=== PATIENT | female | born 1965 | race Asian ===

== ENCOUNTER 2018-08-26 08:44 | Inpatient (IN) | payer MEDICAID ==
[2018-08-15 11:24] LABS: APPEARANCE,URINE CLEAR; BILIRUBIN, URINE NEGATIVE (NEGATIVE); COLOR,URINE PALE YELLOW; GLUCOSE, URINE (UA) NEGATIVE (NEGATIVE); KETONES,URINE NEGATIVE (NEGATIVE); LEUKOCYTE ESTERASE ,URINE NEGATIVE (NEGATIVE); NITRITE,URINE NEGATIVE (NEGATIVE); PH,URINE 7 (4.5-8.0); PROTEIN,URINE NEGATIVE (NEGATIVE); UROBILINOGEN,URINE NORMAL MG/DL (0.0-1.0)
[2018-08-15 11:29] LABS: EOSINOPHILS % (AUTO) 2.6 % (0.0-3.0); HEMATOCRIT 46.8 % (37.0-47.0); HEMOGLOBIN 15.8 G/DL (12.0-16.0); LYMPHOCYTES % (AUTO) 33.4 % (20.0-45.0); MEAN CORPUSCULAR VOLUME 88 FL (80-99); MONOCYTES % (AUTO) 7.6 % (1.0-10.0); NEUTROPHILS % (AUTO) 55.4 % (45.0-75.0); PLATELET COUNT 255 K/UL (150-450); RED BLOOD COUNT 5.33 M/UL (4.20-5.40); RED CELL DISTRIBUTION WIDTH 10.9 % (11.6-14.8); WHITE BLOOD COUNT 5.5 K/UL (4.8-10.8)
[2018-08-15 11:40] LABS: INR 0.9 (0.9-1.1)
[2018-08-15 12:33] LABS: ANION GAP 7 mmol/L (5-15); BLOOD UREA NITROGEN 9 mg/dL (7-18); CARBON DIOXIDE 32 MMOL/L (21-32); CHLORIDE 104 MMOL/L (98-107); CREATININE 0.5 MG/DL (0.55-1.30); POTASSIUM 4.1 MMOL/L (3.5-5.1); SODIUM 143 MMOL/L (136-145)
--- NOTE | 2018-08-23 16:15 | Pre-op HX & Phy Repo 2 SIG ---
DATE OF ADMISSION: 08/26/2018 SCHEDULED FOR SURGERY: 08/26/2018 HISTORY OF PRESENT ILLNESS: The patient is a 53-year-old female in overall good health with left breast cancer. The patient presented for screening mammography with a finding of a 1 centimeter mass in the left breast at 2 o'clock 7 cm from the nipple. 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 Estrogen and progesterone receptors were positive and HER2 negative. The patient is scheduled to undergo left breast partial mastectomy with preoperative needle localization and left axillary lymph node biopsy. PAST MEDICAL HISTORY: MEDICATIONS: None ALLERGIES: None. OPERATIONS: Right wrist surgery 2008. REVIEW OF SYSTEMS: 2, para 2. PHYSICAL EXAMINATION: GENERAL: The patient is 5 foot and 2 inches, 146 pounds. HEENT: Within normal limits. LUNGS: Clear. HEART: Regular rhythm. BREASTS: Small. There are no palpable masses in either breast. There is no axillary or supraclavicular lymphadenopathy. ABDOMEN: Soft. PELVIC AND RECTAL: Per primary care. EXTREMITIES: Without edema. NEUROLOGIC: Physiologic. 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 PLAN: Full discussion has been had with the patient regarding the nature of her condition, the nature of the surgery, indications, alternatives, options and risks including bleeding, infection, need for additional procedures based on final pathology, need for additional treatment based on final pathology including possible chemotherapy and radiation therapy, scarring, distortion of the breast and/or nipple, injury to adjacent structures or organs, etc. All questions have been answered. The patient understands and agrees to proceed. Shakir Gomez M.D. DR: Breanna JOB#: [id number] CC: EDITH
--- NOTE | 2018-08-24 20:28 | Cardiology Report ---
APPROVED REPORT EKG Measurement Heart [id number] Normal sinus rhythm Right bundle branch block Abnormal ECG
[~2018-08-26] VITALS: Ht 160 cm; Wt 66.2 kg
[2018-08-26] VITALS (13 sets, daily range): BP systolic 132–165; BP diastolic 87–101
[2018-08-26] MEDS ORDERED: VITAMIN C500 M1 ORAL (09:26)
[2018-08-26] MEDS ORDERED: Bacitracin 50000 Units Vial ONE (10:14)
[2018-08-26] MEDS ORDERED: NeoSporin Gu Irrig 1ml Amp IRRIG ONE (10:15)
[2018-08-26] MEDS ORDERED: LR 1000ml 1,000 ML IVLG SCH (10:19)
--- NOTE | 2018-08-26 10:24 | Anethesia Preoperative Eval ---
Anesthesia Pre-op PMH/ROS General Date of Evaluation: Aug 26, 2018 Time of Evaluation: 10:51 Anesthesiologist: Rojelio ASA Score: ASA 3 Mallampati Score Class I : Soft palate, uvula, fauces, pillars visible Class II: Soft palate, uvula, fauces visible Class III: Soft palate, base of uvula visible Class IV: Only hard plate visible Mallampati Classification: Class I Surgeon: Patricia Diagnosis: Left Breast CA Surgical Procedure: Left Breast Partial Mastectomy with Lymph Node Dissection Anesthesia History: none Family History: no anesthesia problems Allergies: Coded Allergies: No Known Allergies (Unverified , 08/26/18) Medications: see eMAR Patient NPO?: Yes NPO Date: Aug 25, 2018 NPO Time: 1999 Past Medical History Cardiovascular: Reports: HTN Hematology/Immune: Reports: other - Left Breast CA PSxH Narrative: R Wrist Sx Anesthesia Pre-op Phys. Exam Physician Exam Last Vital Signs Date Time Temp Pulse Resp B/P (MAP) Pulse Ox O2 Delivery O2 Flow Rate FiO2 08/26/18 09:31 Room Air 08/26/18 09:30 97.3 67 18 132/87 (102) 98 Constitutional: NAD Neurologic: CN 2-12 intact Cardiovascular: RRR Respiratory: CTA Gastrointestinal: S/NT/ND Airway Exam Mallampati Score: Class I MO: full ROM: full Teeth: intact Anesthesia Pre-op A/P Labs Labs Test 08/15/18 11:00 White Blood Count 5.5 K/UL (4.8-10.8) Red Blood Count 5.33 M/UL (4.20-5.40) Hemoglobin 15.8 G/DL (12.0-16.0) Hematocrit 46.8 % (37.0-47.0) Mean Corpuscular Volume 88 FL (80-99) Mean Corpuscular Hemoglobin 29.6 PG (27.0-31.0) Mean Corpuscular Hemoglobin Concent 33.8 G/DL (32.0-36.0) Red Cell Distribution Width 10.9 % (11.6-14.8) Platelet Count 255 K/UL (150-450) Mean Platelet Volume 5.6 FL (6.5-10.1) Neutrophils (%) (Auto) 55.4 % (45.0-75.0) Lymphocytes (%) (Auto) 33.4 % (20.0-45.0) Monocytes (%) (Auto) 7.6 % (1.0-10.0) Eosinophils (%) (Auto) 2.6 % (0.0-3.0) Basophils (%) (Auto) 1.0 % (0.0-2.0) Prothrombin Time 9.8 SEC (9.30-11.50) Prothromb Time International Ratio 0.9 (0.9-1.1) Activated Partial Thromboplast Time 26 SEC (23-33) Urine Color Pale yellow Urine Appearance Clear Urine pH 7 (4.5-8.0) Urine Specific Somis 1.005 (1.005-1.035) Urine Protein Negative (NEGATIVE) Urine Glucose (UA) Negative (NEGATIVE) Urine Ketones Negative (NEGATIVE) Urine Blood Negative (NEGATIVE) Urine Nitrite Negative (NEGATIVE) Urine Bilirubin Negative (NEGATIVE) Urine Urobilinogen Normal MG/DL (0.0-1.0) Urine Leukocyte Esterase Negative (NEGATIVE) Sodium Level 143 MMOL/L (136-145) Potassium Level 4.1 MMOL/L (3.5-5.1) Chloride Level 104 MMOL/L (98-107) Carbon Dioxide Level 32 MMOL/L (21-32) Anion Gap 7 mmol/L (5-15) Blood Urea Nitrogen 9 mg/dL (7-18) Creatinine 0.5 MG/DL (0.55-1.30) Estimat Glomerular Filtration Rate > 60 mL/min (>60) Glucose Level 117 MG/DL (74-106) Calcium Level 9.0 MG/DL (8.5-10.1) Risk Assessment & Plan Assessment: ASA 3 Plan: GA, SED Status Change Before Surgery: No Pre-Antibiotics Drug: ! Gram Abncef IV Given Within 1 Hr of Incision: Yes Time Given: 11:06 Juan Serrato MD Aug 26, 2018 10:24
[2018-08-26] MEDS ORDERED: fentaNYL 100 mcg/2 mL IV PRN (10:30)
[2018-08-26] MEDS ORDERED: HYDROcodone/Acetamin 7.5/325 tab ORAL PRN (10:30)
[2018-08-26] MEDS ORDERED: oxyCODONE HCL/Acetaminophen 5/325mg ORAL PRN (10:30)
[2018-08-26] MEDS ORDERED: Atropine Sulfate 0.4mg/ml inj IVP PRN (10:30)
[2018-08-26] MEDS ORDERED: LORazepam Inj 2mg/ml 1ml IV PRN (10:30)
[2018-08-26] MEDS ORDERED: Hydromorphone 0.5mg/0.5ml inj IVP PRN (10:30)
[2018-08-26] MEDS ORDERED: Metoclopramide 10mg/2ml Inj IVP PRN (10:30)
[2018-08-26] MEDS ORDERED: Midazolam 2mg/2ml Inj IVP PRN (10:30)
[2018-08-26] MEDS ORDERED: Acetaminophen (Non formulary) 100 ML IV ONE (10:30)
[2018-08-26] MEDS ORDERED: Norco 5mg/325mg tab ORAL PRN (10:30)
[2018-08-26] MEDS ORDERED: Meperidine 50mg/ml Inj(FOR RIGORS ONLY) IVP PRN (10:30)
[2018-08-26] MEDS ORDERED: Ketorolac 30mg Inj IV PRN ×2 (10:30)
[2018-08-26] MEDS ORDERED: DiphenhydrAMINE 50mg/ml Inj IVP PRN (10:30)
[2018-08-26] MEDS ORDERED: Lidocaine 1% Plain 30 ml INJ ONE (10:35)
[2018-08-26] MEDS ORDERED: Midazolam 2mg/2ml Inj ONE (10:37)
[2018-08-26] MEDS ORDERED: Lidocaine 1% MPF 10mg/ml 5ml ONE (10:37)
[2018-08-26] MEDS ORDERED: Sodium Chloride 10ml vial INJ ONE (10:37)
[2018-08-26] MEDS ORDERED: Dexamethasone 4mg/ml vial ONE (10:37)
[2018-08-26] MEDS ORDERED: fentaNYL 100 mcg/2 mL IV ONE (10:37)
--- NOTE | 2018-08-26 10:54 | Immediate Post-Op Evaluation ---
Immediate Post-Op Evalulation Immediate Post-Op Evalulation Procedure: Left Breast Partial Mastectomy with Lymph Node Dissection Date of Evaluation: Aug 26, 2018 Time of Evaluation: 12:57 IV Fluids: 300 LR Blood Products: 0 Estimated Blood Loss: 20 Urinary Output: 0 Blood Pressure Systolic: 149 Blood Pressure Diastolic: 94 Pulse Rate: 72 Respiratory Rate: 16 O2 Sat by Pulse Oximetry: 100 Temperature (Fahrenheit): 97.2 Pain Score (1-10): 2 Nausea: No Vomiting: No Complications 0 Patient Status: awake, reacts, patent, none Hydration Status: adequate Dru Gram Ancef IV Given Within 1 Hr of Incision: Yes Time Given: 11:06 Juan Serrato MD Aug 26, 2018 10:54
[2018-08-26] MEDS ORDERED: NS Irrig 1000ml ONE (11:00)
[2018-08-26] MEDS ORDERED: Sterile Water Irrig 1000ml IRRIG ONE (11:00)
[2018-08-26] MEDS ORDERED: Propofol 1,000mg/ 100ml btl IV ONE (11:00)
[2018-08-26] MEDS ORDERED: LR 1000ml ONE (11:00)
--- NOTE | 2018-08-26 11:00 | Pre-Procedure Note/Attestation ---
Pre-Procedure Note/Attestation Complete Prior to Procedure Planned Procedure: left Procedure Narrative: left breast partial mastectomy with pre-op needle localization and left axillary lymph node biopsy Indications for Procedure Pre-Operative Diagnosis: invasive ductal carcinoma left breast Attestation I attest that I discussed the nature of the procedure; its benefits; risks and complications; and alternatives (and the risks and benefits of such alternatives ), prior to the procedure, with the patient (or the patient's legal payroll representative). I attest that, if there was a reasonable possibility of needing a blood transfusion, the patient (or the patient's legal payroll representative) was given the [facility] standardized written summary, pursuant to the [place] Blood Safety Act ([place] Health and Safety Code # 1645, as amended). I attest that I re-evaluated the patient just prior to the surgery and that there has been no change in the patient's H&P, except as documented below: none Shakir Gomez MD Aug 26, 2018 11:00
[2018-08-26] MEDS ORDERED: HYDROmorphone 1mg/ml Carpuject SUBQ PRN (12:45)
--- NOTE | 2018-08-26 12:49 | Brief Operative Note ---
Immediate Post Operative Note Operative Note Pre-op Diagnosis: invasive ductal carcinoma left breast Procedure: left breast partial mastectomy with pre-op needle localization and left axillary lymph node biopsy Post-op Diagnosis: same Post-op Diagnosis: same as pre-op Findings: consistent w/pre-op dx studies Surgeon: doni Anesthesiologist: feliciano Anesthesia: general Specimen: yes - breast; axillary nodes Complications: none Condition: stable Fluids: see anesthesia record Estimated Blood Loss: minimal Drains: QIANA Implant(s) used?: No Shakir Gomez MD Aug 26, 2018 12:49
--- NOTE | 2018-08-26 13:50 | NUR ---
NURSE NOTES:RECEIVED FR. PACU BY BED S/P LEFT BREAST MASTECTOMY,SLEEPY BUT AROUSABLE,MOVING ALL EXTREMITIES.SKIN WARM TO TOUCH.WITH 2LITERS N/C,LEFT BREAST DRSNG WITH SURGICAL BRA C/D/I.QIANA INTACT NO DRAINAGE. FAMILY AT BEDSIDE.PLAN OF CARE DISCUSSED,WILL MONITOR.
[2018-08-26] MEDS: D5 1/2NS w/KCl 20mEq 1,000 ML IV SCH (15:47)
--- NOTE | 2018-08-26 18:35 | NUR ---
NURSE NOTES:ENCOURAGED TO TAKE PO INTAKE,NO VOIDING YET,NO C/O PAIN.NO OUTPUT FR. KIRAN.FAMILY AT BEDSIDE.
--- NOTE | 2018-08-26 19:15 | Operative Note - Dictated ---
DATE OF OPERATION: 08/26/2018 SURGEON: Shakir Gomez M.D. SHOE CLEANER: None. ANESTHESIOLOGIST: Juan Serrato M.D. TYPE OF ANESTHESIA: General. PREOPERATIVE DIAGNOSIS: Invasive ductal carcinoma, left breast. POSTOPERATIVE DIAGNOSIS: Invasive ductal carcinoma, left breast. OPERATION PERFORMED: Left breast partial mastectomy with preoperative needle localization and left axillary lymph node biopsies. DESCRIPTION OF PROCEDURE: The patient was taken to the operating room and under general anesthesia with sequential compression device stockings in place, she was prepped and draped in usual fashion. The lesion was located in the periphery of the upper outer quadrant of the left breast. A curvilinear transversely oriented incision was made and flaps dissected circumferentially with cautery for hemostasis. The wire was brought into the field. The quadrant of breast tissue was resected orienting the specimen with suture markers anterior, superior, and medial. Specimen radiograph confirmed the presence of the lesion and pathologic inspection revealed the margins grossly to be clear. The field was irrigated with antibiotic solution and hemostasis with cautery. The incision was closed with interrupted 3-0 Vicryl deep dermal subcutaneous sutures followed by continuous 4-0 Monocryl subcuticular suture. A transverse curvilinear left axillary incision was made achieving hemostasis with cautery and incising the clavipectoral fascia. Lower level dissection was performed using the [place]. The pathologist confirmed the presence of lymph nodes in the specimen. After ascertaining the hemostasis was secured, a 19 mm round Ji drain was placed into the axilla through a separate stab wound inferolaterally and sutured to the skin with 2-0 nylon suture. The incision was closed in layers with interrupted 3-0 Vicryl on clavipectoral fascia and subcutaneous tissues and skin closed with continuous 4-0 Monocryl subcuticular suture. Tincture of benzoin and half-inch Steri-Strips were applied to both incisions followed by dry sterile dressings. Final sponge and needle counts were correct. A postsurgical partial mastectomy brassiere was applied. The patient tolerated the procedure well and left the operating room in good condition. Shakir Gomez M.D. DR: ELIZABETH/SARA JOB#: [id number] CC:
--- NOTE | 2018-08-26 19:35 | NUR ---
HAND-OFF: Report given to NGUYEN MICHAEL RN.PATIENT STABLE.
[2018-08-26] MEDS: Norco 5mg/325mg tab ORAL PRN (20:17)
--- NOTE | 2018-08-26 20:24 | NUR ---
CASE MANAGEMENT: REVIEW 53/F SCHEDULED SURGICAL ADMISSION CC: LEFT BREAST CA SI: LEFT BREAST CA LEFT BREAST PARTIAL MASTECTOMY WITH LYMPH NODE DISSECTION 08/26 T 97.6 HR 77 RR 14 BP 149/94 SAT 100% SIMPLE MASK 6.0 CREATININE 0.5 IS: FENTANYL IV X1 VERSED IV X1 ANCEF IV X1 LACTATED RINGER'S IV X1 NEOMYCIN IRRIG X1 PATIENT ADMITTED TO MED/SURG UNIT 08/26/2018 DCP: PATIENT IS FROM HOME
--- NOTE | 2018-08-26 22:57 | NUR ---
NURSE NOTES: Patient in bed awake and oriented. VSS. No SOB noted. Dressing is clean and dry. QIANA is intact and draining. Patient able to ambulate with assist. Voided x1 in the bathroom. Needs attended. Due meds given. Family at bedside. Call light within reach. in stable condition.
[2018-08-27] MEDS: D5 1/2NS w/KCl 20mEq 1,000 ML IV SCH (04:24)
[2018-08-27] MEDS: Norco 5mg/325mg tab ORAL PRN (06:38)
--- NOTE | 2018-08-27 07:13 | NUR ---
NURSE NOTES: Patient still has episodes of nausea. PRN zofran given, tolerated well. PRN norco given for 5/10 surgical pain. Ambulated to the restroom multiple times with assist. In stable condition.
--- NOTE | 2018-08-27 07:40 | NUR ---
NURSE NOTES:WALKING ROUNDS DONE WITH NIGHT RN(NGUYEN)PATIENT AWAKE,A/OX4,ROOM AIR,NO SIGN OF PAIN OR NAUSEA.LEFT BREAST DRSNG C/D/I.QIANA WITH SANGUINEOUS DRAINAGE.FAMILY AT BEDSIDE.
--- NOTE | 2018-08-27 08:20 | NUR ---
CASE MANAGEMENT:REVIEW 08/27/18 SI: POD #1 S/P LEFT BREAST PARTIAL MASTECTOMY WITH LYMPH NODE DISSECTION 97.7 73 18 142/91 99% ON RA IS: IVF@75/HR NORCO PO Q4HRS PRN IV ZOFRAN Q4HRS PRN : MED/SURG STATUS 3 EAST DCP: PATIENT IS FROM HOME
[2018-08-27] MEDS ORDERED: traMADol 50mg tab ORAL PRN (08:30)
--- NOTE | 2018-08-27 08:30 | General Progress Note ---
Progress Note Progress Note AVSS Having persistent nausea/emesis despite Zofran. Pain controlled with [place] - ? cause of nausea Left breast and axilla incisions are clean and dry with intact steristrips QIANA drain 30cc Imp. Nausea/emesis Plan; Change [place] to Tramadol Add Compazine IV to Zofriam RN to teach patient care of QIANA drain continue hospital stay today Shakir Gomez MD Aug 27, 2018 08:30
--- NOTE | 2018-08-27 08:30 | NUR ---
NURSE NOTES:SEEN BY DR. 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
[2018-08-27 08:45] VITALS: BP 130/83
--- NOTE | 2018-08-27 10:22 | 48 Hour Post Anesthesia Eval ---
Post Anesthesia Evaluation Procedure: Left Breast Partial Mastectomy with Lymph Node Dissection Date of Evaluation: Aug 27, 2018 Time of Evaluation: 10:21 Blood Pressure Systolic: 130 0: 83 Pulse Rate: 79 Respiratory Rate: 18 Temperature (Fahrenheit): 98.2 O2 Sat by Pulse Oximetry: 98 Airway: patent Nausea: No Vomiting: No Pain Intensity: 2 Cardiopulmonary Status: Stable Follow-up Care/Observations: 0 Post-Anesthesia Complications: 0 Follow-up care needed: ready to discharge Juan Serrato MD Aug 27, 2018 10:22
--- NOTE | 2018-08-27 10:48 | NUR ---
NURSE NOTES:COMPAZINE IV GIVEN FOR C/O NAUSEA.ENCOURAGED TO AMBULATE.
[2018-08-27 11:56] VITALS: BP 147/83
--- NOTE | 2018-08-27 12:00 | NUR ---
NURSE NOTES:AMBULATING INSIDE THE ROOM,FEELS BETTER FR.NAUSEA.ABLE TO EAT AND DRINK.VOIDING.
[2018-08-27 16:00] VITALS: BP 123/87
--- NOTE | 2018-08-27 17:00 | NUR ---
NURSE NOTES:PATIENT TEACHING WAS PROVIDED INTERPRETED BY ALIYAH MITCHELL.RE:CARE OF QIANA.AFTER D/C.PATIENT VERBALIZED UNDERSTANDING.FAMILY AT BEDSIDE.
--- NOTE | 2018-08-27 19:53 | NUR ---
NURSE NOTES: Patient in bed awake and oriented. VSS. No SOB noted at this time. No pain noted. Dressing is clean and dry. Surgical bra in place. Family at bedside. IS use reinforced. Needs attended. Call light within reach. No signs of distress noted. In stable condition.
--- NOTE | 2018-08-28 08:00 | NUR ---
NURSE NOTES: Patient is in bed awake and able to verbalize needs. Stable with no s/s acute distress. Patient denies pain at this time. Patient encouraged to use call light for assistance, verbalized understanding. Patient is comfortable in bed with call light within reach. WIll continue to monitor.
[2018-08-28 09:00] VITALS: BP 144/93
--- NOTE | 2018-08-28 10:01 | General Progress Note ---
Progress Note Progress Note AVSS Feeling much better with nausea/emesis resolved. Mild pain. left breast and axillary incisions clean. QIANA drain 25cc serosang - patient able to take care of drain Imp. Improved Plan: discharge instructions/supplies/limitations provided/discussed f/u 09/03 office Shakir Gomez MD Aug 28, 2018 10:01
[2018-08-28 12:00] VITALS: BP 162/94
--- NOTE | 2018-08-28 14:45 | NUR ---
NURSE NOTES: Patient discharged home as ordered. Patient is stable and denies pain or SOB. Patient teaching given about QIANA drain, patient was able to return demonstration. Thorough discharge instructions given to patient, patient verbalized understanding. IV removed without complications. Skin is clean,dry, and intact. Patient was assisted downstairs by RN.
--- NOTE | 2018-08-28 15:42 | NUR ---
INSURANCE NO INFO IN B/AR ON WHERE TO SEND TO CLINICALS.
--- NOTE | 2018-08-29 10:47 | Discharge Summary ---
Discharge Summary Discharge Summary _ DATE OF ADMISSION: 08/26/2018 DATE OF DISCHARGE: 08/28/2018 DISCHARGED BY: Dr. Shakir Gomez HISTORY OF PRESENT ILLNESS: The patient is a 53-year-old female in overall good health with left breast cancer. The patient presented for screening mammography with a finding of a 1 centimeter mass in the left breast at 2 o'clock 7 cm from the nipple. 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 Estrogen and progesterone receptors were positive and HER2 negative. BRIEF HOSPITAL COURSE: She was admitted on 08/26/2018 and underwent with preoperative needle localization and left axillary lymph node biopsy. She tolerated procedure well. First day postop, she had persistent nausea/emesis despite Zofran. She had pain control with [place]. Left breast and axilla incisions were clean and dry with intact Steri-Strips. [place] was changed to tramadol. IV Compazine was added. She was educated on QIANA drain care. The following day, she was feeling much better with nausea/emesis resolved. Left breast and axillary incisions were clean. She had mild pain. She was able to return demonstration on how to take care of drain. She was eventually cleared for discharge. PREOPERATIVE DIAGNOSIS: Invasive ductal carcinoma, left breast. POSTOPERATIVE DIAGNOSIS: Invasive ductal carcinoma, left breast. OPERATION PERFORMED: Left breast partial mastectomy with preoperative needle localization and left axillary lymph node biopsies. DISPOSITION: Patient was discharged home. DISCHARGE MEDICATIONS: Refer to Discharge Medication List. DISCHARGE INSTRUCTIONS: Follow-up on 09/03/2018. I have been assigned to complete a discharge summary on this account, I was not involved with the patient's management. Kajal Mcdaniel NP Aug 29, 2018 10:47
== END 2018-08-28 14:15 | disposition home or self-care (01) | DRG 363 ==
LOC: SDSOVERFLO 08:44 → SDS 08:44 → UNDOADMIN 08:44 → EDSTATUS 11:00 → SDSOVERFLO 11:43 → 3E 14:06
PROC: 07T60ZZ Resection of Left Axillary Lymphatic, Open Approach (ICD-10-PCS; 2018-08-26)
PROC: 0HBU0ZZ Excision of Left Breast, Open Approach (ICD-10-PCS; principal; 2018-08-26 11:00)
DX: C50.912 Malignant neoplasm of unspecified site of left female breast (principal); I10 Essential (primary) hypertension; R11.2 Nausea with vomiting, unspecified
CPT/HCPCS: 36415; 80048; 81003; 85025; 85610; 85730; 87081; 93005; 94003; 94150; J2250; J2405